=== PATIENT | female | born 1965 | race Caucasian/White ===

== ENCOUNTER → 2017-09-27 | Outpatient (CLI) | payer BC ==
--- NOTE | 2017-09-27 15:01 | CONS ---
CONSULTATION DATE OF SERVICE: 09/27/2017 52-year-old lady has been evaluated in the sleep center for possible obstructive sleep apnea-hypopnea syndrome. She was referred by Larry. 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 On days when she is off from 10 to 12 midnight until 6 or 8:00 am. FALLING ASLEEP: No problem with falling asleep. She does not have TV in bedroom. DURING THE SLEEP: She snores and maybe wakes up once with nocturia. She usually sleeps on the back position. No history of hypnagogical hallucinations, sleep paralysis or cataplexy. DURING THE DAY/SLEEP WAKE EVALUATION: The patient denied any significant daytime sleepiness. [place] Sleepiness Scale is 1. PAST MEDICAL HISTORY: Positive for hypertension, hyperlipidemia, hypothyroidism. Seasonal allergies. PAST SURGICAL HISTORY: Tonsillectomy, , hysterectomy with total hysterectomy in 2007 and right knee surgery for meniscal rupture. MEDICATIONS: Hydrochlorothiazide, losartan, atorvastatin, levothyroxine. SOCIAL HISTORY: Negative for smoking. Alcohol consumption occasionally. FAMILY HISTORY: Hypertension, diabetes, thyroid problems, cancer. REVIEW OF SYSTEMS: Occasional awakenings from sleep, otherwise basically sometimes swelling of the legs. PHYSICAL EXAM: 52-year-old lady without distress. BP 143/78, HR 82, RR 16, height 5 feet 6 inches, weight 244, BMI 39.3. Neck 16 inches in circumference. Temperature 98.1. Oxygen saturation on room air 96%. Oropharynx: Low position of soft palate, wide pillars, small oropharyngeal air space. Slight restriction of nasal breathing. ABDOMEN: Obese. Extremities 1+ bilateral ankle edema. Neck Supple, no JVD. Thyroid is not palpable. LUNGS Clear to percussion and to auscultation. Good air exchange. No wheezing or rhonchi. HEART S1, S2 regular. No murmurs, gallops, or rubs. ABDOMEN : Obese. Soft and nontender. Bowel sounds are present. No organomegaly appreciated. EXTREMITIES No clubbing or cyanosis. 1+ bilateral ankle edema. [facility] Awake, alert, and oriented X3. Cranial nerves 2 to 7 intact. There is no fasciculation or atrophy. noted. No focal deficits observed. IMPRESSION: 1. Snoring, small oropharyngeal air space. Some restriction of nasal breathing, wide neck, obesity, possible obstructive sleep apnea-hypopnea syndrome. 2. Obesity, BMI 39.3. 3. Hypertension. 4. Seasonal allergy. 5. Hyperlipidemia. 6. Hypothyroidism. 7. Status post tonsillectomy. 8. Status post . 9. Status post total hysterectomy. 10.Status post right knee meniscus surgery. 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 PLAN: 1. Polysomnography for evaluation of patient's breathing during sleep. 2. CPAP/BiPAP titration if sleep study confirms obstructive sleep apnea-hypopnea syndrome. 3. Preferable position during sleep on the side. 4. No driving if patient feels any sleepiness. Patient is aware about civil and criminal liability for unsafe driving. 5. I will see patient for follow up visit to explain results of testing and following plan. Thank you very much for referring this patient for consultation. Sincerely, Titi Jerez MD, PhD, FAASM Diplomat of [employer] [employer] Specialties [place] Board of [employer] Medicine Substance Abuse Nurse of [facility] [place] MMODL / HAYLEYN: [id number] /
== END | disposition home or self-care (01) ==
LOC: SLEEP 11:36
PROVIDERS: ATTEND Internal Medicine
DX: R06.83 Snoring (principal); M27.8 Other specified diseases of jaws; E66.9 Obesity, unspecified; I10 Essential (primary) hypertension; J30.2 Other seasonal allergic rhinitis; E78.5 Hyperlipidemia, unspecified; E03.9 Hypothyroidism, unspecified; Z90.89 Acquired absence of other organs; Z98.890 Other specified postprocedural states; Z68.39 Body mass index [BMI] 39.0-39.9, adult; Z90.710 Acquired absence of both cervix and uterus; Z79.899 Other long term (current) drug therapy
CPT/HCPCS: 99211

== ENCOUNTER → 2017-10-25 | Outpatient (CLI) | payer BC ==
--- NOTE | 2017-10-26 10:52 | MM ---
Reason for exam: screening (asymptomatic). Last mammogram was performed 4 years and 8 months ago. History: Patient is postmenopausal. Physical Findings: A clinical breast exam by your physician is recommended on an annual basis and results should be correlated with mammographic findings. MG Screening Mammo w CAD Bilateral CC and MLO view(s) were taken. Technologist: Leela Gomes RT (R)(M) Prior study comparison: March 04, 2013, bilateral digital screening mammo w/CAD. December 31, 2006, bilateral screening mammogram w/CAD. There are scattered fibroglandular densities. No suspicious abnormality. ASSESSMENT: Negative, BI-RAD 1 RECOMMENDATION: Routine screening mammogram of both breasts in 1 year. Manage on a clinical basis. Axillary nodes appear more prominent, clinical evaluation ultrasound could be performed for clinical concern.
== END | disposition home or self-care (01) ==
LOC: RADMAMWWP 07:01
PROVIDERS: ATTEND Family Medicine
DX: Z12.31 Encounter for screening mammogram for malignant neoplasm of breast (principal)
CPT/HCPCS: 77067

== ENCOUNTER → 2018-01-10 | Outpatient (CLI) | payer BC ==
--- NOTE | 2018-01-10 12:07 | SFUN ---
SLEEP CENTER FOLLOW UP NOTE DATE OF SERVICE: 01/10/2018 A 52-year-old lady who has been followed in Sleep Center for treatment of obstructive sleep apnea-hypopnea syndrome. Recently she had home sleep apnea test which showed severe sleep apnea, 31.4 events per hour with oxygen desaturation to 66%. Patient was started on auto PAP and today is her first visit after she received her CPAP unit. Patient is trying to use equipment every night, but has problem with a full-face mask. She believes that she cannot use nasal mask because sometimes she has problems with breathing through her nose secondary to allergy. She does not feel much improvements with the machine according to her. I checked CPAP unit, except for medical regimen between 5 and 12 cm of water, usage is 27/30 nights and 16/30 nights more than 4 hours. Apnea-hypopnea index reading from the machine is 3.1 and the pressure in the machine is 12. Leak is 11 L/minute which is acceptable. [place] Sleepiness Scale today is 3. MEDICATIONS: Hydrochlorothiazide, atorvastatin, losartan, levothyroxine. PHYSICAL EXAM: Patient in no distress. BP 144/71, HR 92, RR 16, weight 244, temp 98.0, oxygen saturation at room air 97%. OROPHARYNX: Low position of soft palate. ABDOMEN: Obese. Neck Supple, no JVD. Thyroid is not palpable. LUNGS Clear to percussion and to auscultation. Good air exchange. No wheezing or rhonchi. HEART S1, S2 regular. No murmurs, gallops, or rubs. EXTREMITIES No clubbing or cyanosis. 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 Cranial nerves 2 to 7 intact. There is no fasciculation or atrophy. noted. No focal deficits observed. IMPRESSION: 1. Severe obstructive sleep apnea-hypopnea syndrome, most on control with auto PAP by reading from the machine. Patient has some problem related to full-face mask. 2. Obesity. 3. Hypertension. 4. Hyperlipidemia. 5. Hypothyroidism. 6. Vitamin D deficiency. PLAN: 1. Patient will continue to use her CPAP equipment every night for the whole night. I will increase the range of the pressure slightly up to maximal level of 15. 2. Patient will try to use nasal strips if she has difficulties to breathe through her nose. 3. Losing weight. 4. Sleep hygiene with regular time in bed for at least 8 hours. 5. No driving if feeling any sleepiness. 6. Followup visit in about 4 to 6 weeks. Thank you very much for allowing me to participate in the management of your patient. Sincerely, Titi Jerez MD, PhD, FAASM Diplomat of [place] [employer] Specialties [employer] Board of Internal Medicine Casing Mixer of [facility] [place] MMODL / HAYLEYN: [id number] /
== END | disposition home or self-care (01) ==
LOC: SLEEP 10:36
PROVIDERS: ATTEND Internal Medicine
DX: G47.33 Obstructive sleep apnea (adult) (pediatric) (principal); E66.9 Obesity, unspecified; I10 Essential (primary) hypertension; E78.5 Hyperlipidemia, unspecified; E03.9 Hypothyroidism, unspecified; E55.9 Vitamin D deficiency, unspecified; Z99.89 Dependence on other enabling machines and devices; Z79.899 Other long term (current) drug therapy

== ENCOUNTER → 2018-11-01 | Outpatient (CLI) | payer BC ==
--- NOTE | 2018-11-05 17:02 | MM ---
Reason for exam: screening (asymptomatic). Last mammogram was performed 1 year ago. History: Patient is postmenopausal. Took hormonal contraceptives for 5 years. MG Screening Mammo w CAD Bilateral CC and MLO view(s) were taken. Prior study comparison: October 25, 2017, bilateral MG screening mammo w CAD. March 04, 2013, bilateral digital screening mammo w/CAD. There are scattered fibroglandular densities. No significant new finding when compared with prior studies. ASSESSMENT: Negative, BI-RAD 1 RECOMMENDATION: Routine screening mammogram of both breasts in 1 year.
== END | disposition home or self-care (01) ==
LOC: RADMAMWWP 06:56
PROVIDERS: ATTEND Family Medicine
DX: Z12.31 Encounter for screening mammogram for malignant neoplasm of breast (principal)
CPT/HCPCS: 77067

== ENCOUNTER → 2019-01-02 | Outpatient (CLI) | payer BC ==
--- NOTE | 2019-01-02 11:27 | SFUN ---
SLEEP CENTER FOLLOW UP NOTE DATE OF SERVICE: 01/02/2019 This is a 53-year-old lady who has been followed in the Sleep Center for treatment of severe obstructive sleep apnea-hypopnea syndrome. Patient was diagnosed with severe obstructive sleep apnea last year, was started on treatment with AutoPAP and at the beginning she was able to use it, but later she developed some problems with using equipment and she is not able to use it every night. I checked her CPAP unit, range of the pressure 5-15 cm of water. For the last month, patient used it 20/30 nights and 15/30 nights more than 4 hours with average usage 4.5 hours. Apnea-hypopnea index reading 9.6. For the last night, the patient used it only for 26 minutes. Apnea-hypopnea index reading from the machine 30.0, pressure is 14.9. Leak is 8 L/minute, which is acceptable. The patient is using a full-face mask. Patient feels that when she is using machine she sleeps worse than without machine. [place] Sleepiness Scale today is 3. MEDICATIONS: Hydrochlorothiazide, atorvastatin, losartan, levothyroxine. PHYSICAL EXAM: Patient in no distress. BP 145/77, HR 84, RR 16, height 5, 6, weight 242, body mass index 39, temperature 98.0, oxygen saturation on room air 97%. OROPHARYNX: Low position of soft palate. Mallampati 3. ABDOMEN: Obese. Neck Supple, no JVD. Thyroid is not palpable. LUNGS Clear to percussion and to auscultation. Good air exchange. No wheezing or rhonchi. HEART S1, S2 regular. No murmurs, gallops, or rubs. EXTREMITIES No clubbing or cyanosis. 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 Cranial nerves 2 to 7 intact. There is no fasciculation or atrophy. noted. No focal deficits observed. IMPRESSION: 1. Severe obstructive sleep apnea-hypopnea syndrome, apnea-hypopnea index 31.4. Patient is on treatment with AutoPAP, but has difficulties with the usage of equipment. According to patient feels worse with the machine then without machine. 2. Obesity. 3. Hypertension. 4. Hyperlipidemia. 5. Hypothyroidism. 6. History of vitamin D deficiency. PLAN: 1. CPAP titration for evaluation of effective CPAP pressure for correction of severe obstructive sleep apnea-hypopnea syndrome. 2. Losing weight. 3. Sleep hygiene with regular time in bed for at least 7-1/2 hours. 4. No driving if feeling sleepiness. Thank you very much for allowing me to participate in the management of your patient. Sincerely, Titi Jerez MD, PhD, FAASM Diplomat of [place] [employer] Specialties [place] Board of Internal Medicine Senior Solutions Consultant of [facility] [place] MMODL / HAYLEYN: [id number] /
== END | disposition home or self-care (01) ==
LOC: SLEEP 10:41
PROVIDERS: ATTEND Internal Medicine
DX: G47.33 Obstructive sleep apnea (adult) (pediatric) (principal); E66.9 Obesity, unspecified; I10 Essential (primary) hypertension; E78.5 Hyperlipidemia, unspecified; E03.9 Hypothyroidism, unspecified; Z68.39 Body mass index [BMI] 39.0-39.9, adult; Z79.899 Other long term (current) drug therapy; Z86.39 Personal history of other endocrine, nutritional and metabolic disease

== ENCOUNTER → 2020-01-28 | Outpatient (CLI) | payer BC ==
--- NOTE | 2020-02-02 11:42 | MM ---
Reason for exam: screening (asymptomatic). Last mammogram was performed 1 year and 3 months ago. History: Patient is postmenopausal. Took hormonal contraceptives for 5 years. Physical Findings: A clinical breast exam by your physician is recommended on an annual basis and results should be correlated with mammographic findings. MG Screening Mammo w CAD Bilateral CC and MLO view(s) were taken. Prior study comparison: November 01, 2018, bilateral MG screening mammo w CAD. October 25, 2017, bilateral MG screening mammo w CAD. There are scattered fibroglandular densities. No significant changes when compared with prior studies. ASSESSMENT: Negative, BI-RAD 1 RECOMMENDATION: Routine screening mammogram of both breasts in 1 year.
== END | disposition home or self-care (01) ==
LOC: RADMAMWWP 09:12
PROVIDERS: ATTEND Family Medicine
DX: Z12.31 Encounter for screening mammogram for malignant neoplasm of breast (principal)
CPT/HCPCS: 77067

== ENCOUNTER → 2020-09-01 | Outpatient (CLI) | payer BC ==
--- NOTE | 2020-09-01 11:33 | SFUN ---
SLEEP CENTER FOLLOW UP NOTE DATE OF SERVICE: 09/01/2020 This is a 55-year-old lady has been followed in Sleep Center for treatment of obstructive sleep apnea-hypopnea syndrome. During her previous visit, apnea-hypopnea reading from the machine was increased to 7.8, and I changed the regimen of the pressure in the machine, increasing the maximal CPAP pressure to 16. Patient continued to use her CPAP equipment but has problems with humidity because there is a condensation of water in the tube and position of the tube is not correct and there is a goes down on the tube. The patient knows how to adjust humidity and according to her humidity at the level of 4. I checked the CPAP unit. Usage is nights. Average usage is 4.6 hours per night. Range of the pressure of 5-16 with average pressure of 15.9, close to maximal. Leak is 19 L/minute. Apnea-hypopnea index is 5.6, which is less than during the previous visit before I increased the pressure. [place] Sleepiness Scale is 3. MEDICATIONS: Hydrochlorothiazide 25 mg once a day, atorvastatin 10 mg once a day, losartan 100 mg once a day, levothyroxine 100 mcg once a day. PHYSICAL EXAMINATION: GENERAL: Patient in no distress. VITAL SIGNS: BP 147/82, HR 82, RR 15, height 5 feet 7 inches, weight 238.2, temperature 97.6, oxygen saturation on room air 98%. HEENT: PERRLA, EOMI. Oropharynx low position of soft palate, Mallampati 3. NECK: Supple, no JVD. Thyroid is not palpable. LUNGS: Clear to percussion and to auscultation. Good air exchange. No wheezing or rhonchi. HEART: S1, S2 regular. No murmurs, gallops, or rubs. ABDOMEN: Soft and nontender. Bowel sounds are present. No organomegaly appreciated. EXTREMITIES: No clubbing or cyanosis. 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 Cranial nerves 2 to 7 intact. There is no fasciculation or atrophy. noted. No focal deficits observed. IMPRESSION: 1. Severe obstructive sleep apnea-hypopnea syndrome, original apnea-hypopnea index 31.4. The patient continues to use CPAP unit but had some problems with the humidifier with condensation of water in the tube. Apnea-hypopnea index slightly increased to 5.6. 2. Obesity. 3. Hypertension. 4. Hyperlipidemia. 5. Hypothyroidism. 6. History of vitamin D deficiency. PLAN: 1. I extensively discussed with the patient options for the humidity adjustments and I increased humidity to the level of 6. 2. Patient should change position of the machine, so the hose will not configuration and to prevent condensation of water. 3. We will increase temperature in the tube to prevent condensation. 4. I changed pressure in the machine to the maximal level of 17. 5. Patient will continue to use PAP equipment every night for the whole night. 6. Sleep hygiene with regular time in bed for at least 7-1/2 to 8 hours. 7. Precautions related to driving. No driving if feeling sleepiness. 8. I will maintain all necessary prescription for PAP supplies including mask, tube, filters. 9. Watching weight. 10.Follow-up visit in 6 months or earlier if patient has any problems. Thank you very much for allowing me to participate in management of your patient. Sincerely, Titi Jerez MD, PhD, FAASM Diplomat of [place] [employer] Specialties [place] Board of Internal Medicine Interactive Media Marketing Director of [facility] [place] MMODL / IJN: [id number] /
== END ==
LOC: SLEEP 10:14
PROVIDERS: ATTEND Internal Medicine
DX: G47.33 Obstructive sleep apnea (adult) (pediatric) (principal); E66.9 Obesity, unspecified; I10 Essential (primary) hypertension; E78.5 Hyperlipidemia, unspecified; E03.9 Hypothyroidism, unspecified; E55.9 Vitamin D deficiency, unspecified; Z99.81 Dependence on supplemental oxygen; Z87.891 Personal history of nicotine dependence

== ENCOUNTER → 2021-04-07 | Outpatient (CLI) | payer BC ==
--- NOTE | 2021-04-07 21:41 | SFUN ---
SLEEP CENTER FOLLOW UP NOTE DATE OF SERVICE: 04/07/2021 This 55-year-old lady has been followed in Sleep Center for treatment of obstructive sleep apnea-hypopnea syndrome. Patient continues to use her CPAP equipment. She sleeps well. [place] Sleepiness Scale today is only 1, which is totally normal. I checked her CPAP unit. During her previous surgery visit I increased the pressure on her automatic machine to the range of 5 to 17, and that is the range now. Average pressure is 16.7, so it is close to maximum. Usage is 22/30 nights. Average 4.5 hours per night. Leak is 11 L/minute, which is normal range. Apnea-hypopnea index increased to 6.9. No central apneas. MEDICATIONS: 1. Hydrochlorothiazide 25 mg once a day. 2. Levothyroxine 100 mcg once a day. 3. Atorvastatin 10 mg once a day. 4. Losartan 100 mg once a day. PHYSICAL EXAMINATION: GENERAL: Pleasant patient in no distress. VITAL SIGNS: BP 134/74, HR 87, RR 14, height 5 feet 6 inches, weight 230.6, body mass index 37.1, temperature 97.8, oxygen saturation at room air 97%. HEENT: PERRLA, EOMI, evaluation of oropharynx showed tongue protrudes midline. Low position of soft palate; Mallampati III. NECK: Supple, no JVD. Thyroid is not palpable. LUNGS: Clear to percussion and to auscultation. Good air exchange. No wheezing or rhonchi. HEART: S1, S2 regular. No murmurs, gallops, or rubs. ABDOMEN: Soft and nontender. Bowel sounds are present. No organomegaly appreciated. EXTREMITIES: No clubbing or cyanosis. 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 Cranial nerves 2 to 7 intact. There is no fasciculation or atrophy. noted. No focal deficits observed. IMPRESSION: 1. Severe obstructive sleep apnea-hypopnea syndrome. Patient demonstrated borderline compliance with treatment, benefitting from treatment. Apnea-hypopnea index slightly increased to 6.9. No central events. 2. Obesity. 3. Hypertension. 4. Hyperlipidemia. 5. Hypothyroidism. 6. History of vitamin D deficiency. PLAN: 1. I adjusted pressure in the machine to the level of 5 to 18 cm of water. 2. Patient will continue to use PAP equipment every night for the whole night. 3. Sleep hygiene with regular time in bed for at least 7-1/2 to 8 hours. 4. Precautions related to driving. No driving if feeling sleepiness. 5. I will maintain all necessary prescription for PAP supplies including mask, tube, filters. 6. Watching weight. 7. Follow-up visit in 6 months or earlier if patient has any problems. Thank you very much for allowing me to participate in the management of your patient. Sincerely, Titi Jerez MD, PhD, FAASM Diplomat of [place] [employer] Specialties Sleep Medicine Board of [place] Board of Internal Medicine Senior Publications Specialist of [facility] [place] MMODL / IJN: [id number] /
== END ==
LOC: SLEEP 16:24
PROVIDERS: ATTEND Internal Medicine
DX: G47.33 Obstructive sleep apnea (adult) (pediatric) (principal); E66.9 Obesity, unspecified; I10 Essential (primary) hypertension; E78.5 Hyperlipidemia, unspecified; E03.9 Hypothyroidism, unspecified; Z86.39 Personal history of other endocrine, nutritional and metabolic disease; Z79.890 Hormone replacement therapy; Z79.899 Other long term (current) drug therapy; Z68.37 Body mass index [BMI] 37.0-37.9, adult; Z87.891 Personal history of nicotine dependence

== ENCOUNTER → 2021-04-08 | Outpatient (CLI) | payer BC ==
--- NOTE | 2021-04-11 10:16 | MM ---
Reason for exam: screening (asymptomatic). Last mammogram was performed 1 year and 2 months ago. History: Patient is postmenopausal. Took hormonal contraceptives for 5 years. Physical Findings: A clinical breast exam by your physician is recommended on an annual basis and results should be correlated with mammographic findings. MG Screening Mammo w CAD Bilateral CC and MLO view(s) were taken. Prior study comparison: January 28, 2020, bilateral MG screening mammo w CAD. November 01, 2018, bilateral MG screening mammo w CAD. There are scattered fibroglandular densities. Focal asymmetry 7mm anterior central aspect 2cm from nipple. This finding is changed when compared with previous exams. ASSESSMENT: Incomplete: need additional imaging evaluation, BI-RAD 0 RECOMMENDATION: Special view mammogram of the right breast. If lesion persists on supplemental views, image directed ultrasound is recommended. [facility] will attempt to contact patient to return for supplemental views and ultrasound if indicated.
== END | disposition home or self-care (01) ==
LOC: RADMAMWWP 07:15
PROVIDERS: ATTEND Family Medicine
DX: Z12.31 Encounter for screening mammogram for malignant neoplasm of breast (principal); Z78.0 Asymptomatic menopausal state
CPT/HCPCS: 77067

== ENCOUNTER → 2021-04-20 | Outpatient (CLI) | payer BC ==
--- NOTE | 2021-04-21 13:15 | MM ---
Reason for exam: additional evaluation requested from abnormal screening. Last mammogram was performed less than 1 month ago. History: Patient is postmenopausal. Took hormonal contraceptives for 5 years. Physical Findings: Nurse did not find any significant physical abnormalities on exam. MG Work Up Mamm w CAD RT Spot compression CC, spot compression MLO, and LM view(s) were taken of the right breast. Prior study comparison: April 08, 2021, bilateral MG screening mammo w CAD. January 28, 2020, bilateral MG screening mammo w CAD. Finding: There is a 9-11 mm obscured round mass located 2-3 cm from the nipple in the anterior position of the right breast, persists on additional views. These results were verbally communicated with the patient and result sheet given to the patient on 04/20/21. ASSESSMENT: Incomplete: need additional imaging evaluation, BI-RAD 0 RECOMMENDATION: Ultrasound of the right breast.
--- NOTE | 2021-04-21 13:18 | USB ---
Reason for exam: additional evaluation requested from abnormal screening. History: Patient is postmenopausal. Took hormonal contraceptives for 5 years. US Breast Workup Limited RT Right limited breast ultrasound including focal area of concern, retroareolar and axilla demonstrates a 8 x 6 x 8mm microlobulated, irregular, solid, hypoechoic lesion at 12 o'clock. These results were verbally communicated with the patient and result sheet given to the patient on 04/20/21. ASSESSMENT: Suspicious, BI-RAD 4 RECOMMENDATION: Ultrasound core biopsy of the right breast. Called Dr. Sandoval's office with mammographic findings and has scheduled an appointment for the patient for 05/19/21 at 10:[address] Richardson. Biopsy scheduled for 05/19/21 at 1:00. PRELIMINARY REPORT CALLED AND FAXED TO DR. RICHARDSON ON 04/21/21.
== END | disposition home or self-care (01) ==
LOC: RADMAMWWP 10:14
PROVIDERS: ATTEND Family Medicine
DX: R92.8 Other abnormal and inconclusive findings on diagnostic imaging of breast (principal); Z78.0 Asymptomatic menopausal state
CPT/HCPCS: 77065

== ENCOUNTER → 2021-05-19 | Day surgery (SDC) | payer BC ==
[2021-05-19 12:17] VITALS: RESP 16
[2021-05-19 13:31] VITALS: BP 134/83; PULSE 78; TEMP 97.7
--- NOTE | 2021-05-19 16:33 | USB ---
EXAMINATION TYPE: US biopsy breast VAD RT, MG post biopsy diagnostic mammo RT wo CAD DATE OF EXAM: 05/19/2021 CLINICAL HISTORY: 56-year-old female R92.8 ABNORMAL MAMMOGRAM. TECHNIQUE: Ultrasound guided core biopsy of right breast. COMPARISON: 04/08/2021 and 04/20/2021 FINDINGS: The procedure of ultrasound guided core biopsy was explained to the patient. Benefits, alternatives, and risks were discussed. An informed consent was then obtained. The very suspicious 8 mm solid hypoechoic nodule at the 12:00 subareolar region right breast was identified and targeted for biopsy. The patient was placed in supine positioning for imaging and for the procedure. The overlying skin was prepped and draped in usual sterile fashion. Lidocaine was used as anesthetic into the skin and subcutaneous tissue up to area of concern in the 12:00 zone A right breast. Under ultrasound guidance, a 13-gauge vacuum-assisted mammotome biopsy gun was used to obtain 3 core samples. Following this, a wing clip was left in lesion. The patient tolerated the procedure well without any immediate complication. The patient was kept in the radiology department for short stay after the procedure and then discharged home in stable condition. Postprocedure mammogram shows wing clip at the mammographic mass. IMPRESSION: Successful, uncomplicated ultrasound guided core biopsy of the 8 mm BI-RADS 5, 12:00 subareolar right breast mass. Full pathology results to follow. If benign results, repeat biopsy or excision should be considered. Pathology Results: Malignant RIGHT BREAST, TWELVE O'CLOCK, ULTRASOUND GUIDED CORE BIOPSY: Invasive moderately differentiated ductal carcinoma (Grade 2). See Surgical Pathology Cancer Case Summary and Comment. Recommendation Surgical consult of the right breast. EVIE
== END | disposition home or self-care (01) ==
LOC: RADUSWWP 10:02
PROVIDERS: ATTEND Surgery
DX: C50.811 Malignant neoplasm of overlapping sites of right female breast (principal)
CPT/HCPCS: 77065; 19083; A4648; J2001; 88305; 88341; 88342

== ENCOUNTER → 2021-05-19 | Outpatient (CLI) | payer BC ==
[2021-05-19 10:20] VITALS: BP 137/85; RESP 18; TEMP 98.3
--- NOTE | 2021-05-19 10:44 | P.GSHP ---
History of Present Illness H&P Date: 05/19/21 Chief Complaint: Abnormal right breast mammogram Emelyn is a 56-year-old female who is seen in consultation for Dr. Sandoval. She underwent a bilateral mammogram on 1322. This revealed an area of concern in the right breast. [place] [address]. This revealed a solid irregular 8X8 cm lesion in the right breast for which ultrasound-guided core biopsy was recommended. The patient does not feel any lesions of concern in her breast. This was identified on a routine mammogram. She is not complaining of any new lumps masses or nodules in either breast. The second complaining of any nipple discharge or skin changes. She does not complain of any recent trauma or infection in the breast. She has not had any surgery on her breast. Caffiene: occasional nicotine: 4 cigarettes/day for 30 years chocolate: several times/week Family History: maternal grandmother: ovarian cancer mother: kidney cancer Hormonal History; Menarche: 10 M1, breast fed: no, age at first : 25 menopause: hysterectomy at 41 they took her ovaries, done for a cyst; done secondary to family history hormones: none BCP: 2 years Surgical History: tonsil tubal Bilateral knee torn meniscus Total abdominal hysterectomy Medical History: HTN high cholesterol hypothyroid Social History: nicotine: 4/day alcohol: occasional drugs: none - Constitutional Constitutional: Denies chills, Denies fever - EENT Eyes: denies blurred vision, denies pain Ears: deny: decreased hearing, tinnitus Ears, nose, mouth and throat: Denies headache, Denies sore throat - Breasts Breasts: bilateral: as per HPI - Cardiovascular Cardiovascular: Denies chest pain, Denies shortness of breath - Respiratory Respiratory: Denies cough, Denies 7 - Gastrointestinal Gastrointestinal: Denies abdominal pain, Denies diarrhea, Denies nausea, Denies vomiting - Genitourinary (Female) Genitourinary: Denies dysuria, Denies hematuria - Menstruation Menstruation: Reports as per HPI - Musculoskeletal Musculoskeletal: Denies myalgias - Integumentary Integumentary: Denies pruritus, Denies rash - Neurological Neurological: Denies numbness, Denies weakness - Psychiatric Psychiatric: Denies anxiety, Denies depression - Endocrine Comment: hypothyroid Endocrine: Reports as per HPI - Hematologic/Lymphatic Comment: none - Allergic/Immunologic Allergic/Immunologic: Reports seasonal allergies Past Medical History Past Medical History: Hypertension History of Any Multi-Drug Resistant Organisms: None Reported Past Surgical History: Section, Hysterectomy, Tonsillectomy, Tubal Ligation Additional Past Surgical History / Comment(s): torn meniscus repair Past Anesthesia/Blood Transfusion Reactions: No Reported Reaction Past Psychological History: No Psychological Hx Reported Smoking Status: Current every day smoker Past Alcohol Use History: Occasional Past Drug Use History: None Reported Medications and Allergies Home Medications Medication Instructions Recorded Confirmed Type Cholecalciferol [Vitamin D3] 1,000 unit PO DAILY@1200 10/05/15 05/19/21 History Levothyroxine Sodium [Synthroid] 100 mcg PO QAM 10/05/15 05/19/21 History Losartan Potassium [Cozaar] 100 mg PO DAILY@1200 10/05/15 05/19/21 History hydroCHLOROthiazide [Hydrodiuril] 25 mg PO DAILY@1200 10/05/15 05/19/21 History Ascorbic Acid [Vitamin C] 500 mg PO DAILY 05/11/21 05/19/21 History Atorvastatin Calcium [Lipitor] 10 mg PO DAILY@1200 05/19/21 05/19/21 History Allergies Allergy/AdvReac Type Severity Reaction Status Date / Time No Known Allergies Allergy Verified 05/19/21 10:10 Surgical - Exam Vital Signs Temp Resp BP Pulse Ox 98.3 F 18 137/85 98 05/19/21 10:13 05/19/21 10:13 05/19/21 10:13 05/19/21 10:13 BMI 36 - General no distress - Eyes normal ocular movement - Neck trachea midline - Respiratory normal respiratory effort, clear to auscultation - Cardiovascular Rhythm: regular Heart Sounds: normal: S1, S2 - Abdomen Abdomen: soft, non tender, no guarding, no rigid, no rebound - Integumentary normal turgor - Neurologic no disoriented, no combative - Musculoskeletal normal gait, normal posture - Psychiatric oriented to time, oriented to person, oriented to place, speech is normal, memory intact Breast Exam: BRA: 42B inspection: Bilateral grade 2/3 ptosis Palpation: Right breast: Multiple positional exam fibrocystic breast changes no dominant masses or nodules of concern, particularly attention to the area of the lesion seen on ultrasound did not reveal any palpable lesion Right axilla: No adenopathy of concern Left breast: Multi-positional exam fibrocystic changes no dominant masses or nodules of concern Left axilla: No adenopathy of concern Results Mammogram and ultrasound personally reviewed/lesion approximately 8 cm in the right breast near 12:00 Assessment and Plan Assessment: Impression: HTN high cholesterol hypothyroid Fibrocystic breast changes/no discrete dominant masses on palpable on examination Abnormal right breast mammogram and ultrasound Family history of cancer Plan: Ultrasound core biopsy right breast lesion Risks and benefits of procedure discussed with the patient and her . They include but are not limited to bleeding, infection, reaction to the anesthetic. If the biopsy were to be discordant it is possible further biopsy would be recommended. The patient and her understand and they wish to proceed. Cc: Dr. Sandoval
== END ==
LOC: WWCWWP 10:01
PROVIDERS: ATTEND Surgery
DX: N60.11 Diffuse cystic mastopathy of right breast (principal); N60.12 Diffuse cystic mastopathy of left breast; I10 Essential (primary) hypertension; R92.8 Other abnormal and inconclusive findings on diagnostic imaging of breast; E78.00 Pure hypercholesterolemia, unspecified; E03.9 Hypothyroidism, unspecified; Z80.3 Family history of malignant neoplasm of breast; F17.210 Nicotine dependence, cigarettes, uncomplicated; Z79.890 Hormone replacement therapy

== ENCOUNTER → 2021-05-26 | Outpatient (CLI) | payer BC ==
[2021-05-26 09:23] VITALS: BP 134/84; PULSE 86; RESP 17; TEMP 98.6
--- NOTE | 2021-05-26 09:40 | P.PN ---
Subjective Progress Note Date: 05/26/21 Principal diagnosis: invasive ductal carcinoma right breast Emelyn is a 56 year old female status post right breast ultrasound-guided core biopsy and . Pathology revealed invasive ductal carcinoma. This is 8 mm in size. It is ER NC positive and HER-2 equivocal. It is grade 2. Patient tolerated the biopsy without difficulty. Objective - Vital Signs Vital signs: Vital Signs Temp 98.6 F 05/26/21 09:18 Pulse 86 05/26/21 09:18 Resp 17 05/26/21 09:18 BP 134/84 05/26/21 09:18 Pulse Ox Intake & Output 05/25/21 05/26/21 05/26/21 18:59 06:59 18:59 Weight 104.326 kg - Exam BMI 36 - Constitutional General appearance: Present: cooperative - EENT Eyes: Present: EOMI ENT: Present: hearing grossly normal - Neck Neck: Present: normal ROM - Respiratory Respiratory: bilateral: CTA - Cardiovascular Heart sounds: normal: S1, S2 - Integumentary Integumentary Comment(s): Mild ecchymosis biopsy site right breast, no evidence of infection or hematoma Integumentary: Present: normal turgor - Musculoskeletal Musculoskeletal: Present: gait normal - Psychiatric Psychiatric: Present: A&O x's 3 Assessment and Plan Assessment: pathology results reviewed Impression: 1. invasive ductal carcinoma right breast Plan: 1 present at tumor board 2. await her2 results 3. follow up 2 weeks CC: Dr. Sandoval
--- NOTE | 2021-05-26 10:19 | P.PN ---
Progress Note - Text Progress Note Date: 05/26/21 I have discussed with Emelyn results of her ultrasound core biopsy. This is a invasive ductal carcinoma grade 2 ER/[place] positive HER-2/braxton equivocal. This is a stage IA lesion. I've discussed that her case will be presented at tumor Board. We have spent time talking about surgical, medical, and radiation oncology treatment options. At this time the patient will most likely undergo a lumpectomy and sentinel node biopsy. After discussed onco-plastic resection utilizing the mastopexy incision, this would most likely be a donut mastopexy. At this time she is going to consider this. We're awaiting results of the HER-2 status. We discussed genetic testing and at this time she is not going to have it done Her case is going to be presented at tumor board Tentative date is 07/26/2021. Surgical procedure: Needle localization right breast lumpectomy, possible hyperplastic tissue transf er, possible mastopexy, sentinel node biopsy, possible axillary node dissection, right sentinel node injection CC: Dr. Sandoval
== END ==
LOC: WWCWWP 09:10
PROVIDERS: ATTEND Surgery
DX: C50.911 Malignant neoplasm of unspecified site of right female breast (principal); Z17.0 Estrogen receptor positive status [ER+]

== ENCOUNTER → 2021-06-30 | Outpatient (CLI) | payer BC ==
[2021-06-30 10:09] VITALS: BP 153/84; PULSE 79; RESP 17; TEMP 97.9
--- NOTE | 2021-06-30 11:05 | P.PN ---
Subjective Progress Note Date: 06/30/21 Principal diagnosis: Stage IA invasive ductal carcinoma right breast Emelyn is a 56-year-old female who is seen in consultation for Dr. Sandoval. She underwent a bilateral mammogram on 132. This revealed an area of concern in the right breast. Additional diagnostic [place] [address]. This revealed a solid irregular 8X8 cm lesion in the right breast for which ultrasound-guided core biopsy was recommended. The patient does not feel any lesions of concern in her breast. This was identified on a routine mammogram. She is not complaining of any new lumps masses or nodules in either breast. She is not complaining of any nipple discharge or skin changes. She does not complain of any recent trauma or infection in the breast. She has not had any surgery on her breast. She underwent an ultrasound core biopsy on . Pathology revealed an invasive moderately differentiated ductal carcinoma grade 2. This is ER/[place] positive and HER-2/braxton negative. Her case was presented at tumor board on 312. Recommendation is to proceed with surgical intervention followed by radiation and hormonal therapy. The patient has declined genetic testing. Caffiene: occasional nicotine: 4 cigarettes/day for 30 years chocolate: several times/week Family History: maternal grandmother: ovarian cancer mother: kidney cancer Hormonal History; Menarche: 10 M1, breast fed: no, age at first : 25 menopause: hysterectomy at 41 they took her ovaries, done for a cyst; done secondary to family history hormones: none BCP: 2 years Surgical History: tonsil tubal Bilateral knee torn meniscus Total abdominal hysterectomy Medical History: HTN high cholesterol hypothyroid Social History: nicotine: 4/day alcohol: occasional drugs: none - Constitutional Constitutional: Denies chills, Denies fever - EENT Eyes: denies blurred vision, denies pain Ears: deny: decreased hearing, tinnitus Ears, nose, mouth and throat: Denies headache, Denies sore throat - Breasts Breasts: bilateral: as per HPI - Cardiovascular Cardiovascular: Denies chest pain, Denies shortness of breath - Respiratory Respiratory: Denies cough - Gastrointestinal Gastrointestinal: Denies abdominal pain, Denies diarrhea, Denies nausea, Denies vomiting - Genitourinary (Female) Genitourinary: Denies dysuria, Denies hematuria - Menstruation Menstruation: Reports as per HPI - Musculoskeletal Musculoskeletal: Denies myalgias - Integumentary Integumentary: Denies pruritus, Denies rash - Neurological Neurological: Denies numbness, Denies weakness - Psychiatric Psychiatric: Denies anxiety, Denies depression - Endocrine Comment: hypothyroid Endocrine: Reports as per HPI - Hematologic/Lymphatic Comment: none - Allergic/Immunologic Allergic/Immunologic: Reports seasonal allergies Objective - Vital Signs Vital signs: Vital Signs Temp 97.9 F 06/30/21 10:05 Pulse 79 06/30/21 10:05 Resp 17 06/30/21 10:05 BP 153/84 06/30/21 10:05 Pulse Ox 96 06/30/21 10:05 Intake & Output 06/29/21 06/30/21 06/30/21 18:59 06:59 18:59 Weight 103.873 kg - Exam BMI 35.9 - Constitutional General appearance: Present: cooperative - EENT Eyes: Present: EOMI ENT: Present: hearing grossly normal - Neck Neck: Present: normal ROM - Respiratory Respiratory: bilateral: CTA - Cardiovascular Rhythm: regular Heart sounds: normal: S1, S2 - Gastrointestinal General gastrointestinal: Present: soft - Integumentary Integumentary: Present: normal turgor - Musculoskeletal Musculoskeletal: Present: gait normal - Psychiatric Psychiatric: Present: A&O x's 3, appropriate affect, intact judgment & insight - Additional findings Additional findings: Breast examination: [place]: 40 2B: Inspection: Bilateral grade 2/3 ptosis Palpation: Right breast: Multiple positional exam fibrocystic changes no dominant masses or nodules of concern Right axilla: No adenopathy of concern Left breast: Multiple positional exam fibrocystic changes no dominant masses or nodules of concern Left axilla: No adenopathy of concern Assessment and Plan Assessment: Impression: Stage IA invasive ductal carcinoma right breast Plan: right breast needle localization and lumpectomy, right sentinel node injection, right sentinel node biopsy possible axillary node dissection, mastopexy incision, possible onco-plastic tissue transfer Cc: Dr. Sandoval
== END ==
LOC: WWCWWP 09:53
PROVIDERS: ATTEND Surgery
DX: C50.211 Malignant neoplasm of upper-inner quadrant of right female breast (principal); Z17.0 Estrogen receptor positive status [ER+]; F17.210 Nicotine dependence, cigarettes, uncomplicated; I10 Essential (primary) hypertension; E78.00 Pure hypercholesterolemia, unspecified; E03.9 Hypothyroidism, unspecified

== ENCOUNTER 2021-07-05 10:43 | Day surgery (SDC) | payer BC ==
[2021-06-30 11:28] VITALS: BMI 35.9
[~2021-07-05 10:43] MED LIST: DEXAMETHASONE SOD PHOSPHATE 4 MG/ML 1 ML VIAL IV ONE; HEPARIN SODIUM,PORCINE/PF 5,000 UNIT/0.5 ML SYRINGE SQ PRN; HYDROmorphone 0.5 MG/0.5 ML SYRINGE IVP PRN; LACTATED RINGERS 1,000 ML IV SCH; ONDANSETRON 4 MG/2 ML VIAL IVP ONE; Pre Op ABX Message 1 EACH MISC MISCELLANE ONE
[2021-07-05] MEDS ORDERED: ALPRAZolam 0.5 MG TAB ONE (11:06)
[2021-07-05] MEDS ORDERED: LIDOCAINE 1% INJ 10MG/ML (20 ML MDV) SQ ONE ×3 (11:46→14:52)
[2021-07-05] MEDS ORDERED: KETOROLAC 15 MG/ML 1 ML VIAL ONE (12:26)
[2021-07-05] MEDS ORDERED: PROPOFOL 10 MG/ML 20 ML VIAL IV ONE (12:26)
[2021-07-05] MEDS ORDERED: MIDAZOLAM 2 MG/2 ML VIAL ONE (12:26)
[2021-07-05] MEDS ORDERED: LIDOCAINE 1% INJ 10MG/ML (20 ML MDV) ONE (12:26)
[2021-07-05] MEDS ORDERED: fentaNYL (PF) 50 MCG/ML 2 ML AMP ONE (12:26)
--- NOTE | 2021-07-05 12:56 | NM ---
EXAMINATION TYPE: NM sentinel node injection DATE OF EXAM: 07/05/2021 COMPARISON: NONE INDICATION: Abnormal mammogram. Informed consent was obtained. A timeout was performed. The area around the right nipple was cleansed with alcohol. In a single dose, a total of 08/09/2018 u Ci Technetium 99m Tilmanocept was injected. The patient tolerated the procedure very well. IMPRESSIONS: 1. Successful injection for sentinel node evaluation.
--- NOTE | 2021-07-05 13:06 | P.NAPBC ---
NAPBC Queries - NAPBC Queries Was patient's case review presented at [facility] tumor board? If no, comment.: Yes Was patient's pathology reviewed at [facility]? If no, comment.: Yes Was breast conservation surgery offered? If no, comment.: Yes Was sentinel node biopsy offered? If no, comment.: Yes Was diagnosis confirmed by percutaneous core biopsy? If no, comment.: Yes Is patient mastectomy patient?: No Was a preop referral to reconstructive surgeon offered?: No Clinical Stage: stage IA
--- NOTE | 2021-07-05 15:01 | P.OP ---
Date of Procedure: 07/05/21 Preoperative Diagnosis: Right breast stage IA invasive carcinoma Postoperative Diagnosis: Same Procedure(s) Performed: Right sentinel node biopsy, right mastopexy, right localization lumpectomy, right onco- plastic tissue transfer 55 cm Anesthesia: BRENNENA Surgeon: Constanza Sanderson Estimated Blood Loss (ml): 15 IV fluids (ml): 500 Pathology: other ([place] lymph node, right breast tissue) Condition: stable Disposition: same day Indications for Procedure: Right breast invasive carcinoma Operative Findings: Fibrofatty breast tissue Description of Procedure: Emelyn is a 56-year-old white female diagnosed with a right breast invasive carcinoma. She was seen first in the radiology department where needle localization of the area of concern was performed as well as radioactive injection of tracer in the periareolar region. She was then brought to the operating room. The neoprobe was utilized to identify an area of increased radioactivity in the axilla. The right breast was marked for mastopexy. Marked. Margins were placed. The crescent mastopexy with the apex approximately 1 cm above the areolar. The right breast and axilla were prepped and draped in a sterile fashion. The area of the axilla was approached initially. Using the Robe counter to identify the area of greatest radioactivity an incision was made. Dissection was performed deep into the axillary tissue. The deep axillary node was identified which was radioactive. This was excised. The 10 second count was 479. The background count was 23. No other adenopathy of concern was identified. The deep tissues were closed using 3-0 Vicryl suture. The skin was closed using a 4-0 Monocryl. Steri-Strips applied. The area of the breast was approached. Using the area of the previously marked mastopexy site the skin was de- epithelialized. The parenchyma was entered. The shaft of the needle was identified and surrounding tissue was excised. The defect was 5 x 3 cm. Following this the specimen was painted and sent for review old graft. The clip was noted to be in the specimen, and the tumor appeared to be completely excised. Radiograph was personally reviewed. Additional margins were obtained superior, medial, anterior, posterior, inferior and lateral. Posteriorly dissection was performed onto the pectoralis muscle. After we were assured hemostasis was obtained titanium clips were placed to henna the cavity. To close the defect a superior pillar 7.5 x 4 cm was developed. Inferior pillar 5 x 2 cm was developed. Total tissue mobilized was 55 cm. Titanium clips were placed. The deep tissues were closed using 3-0 Vicryl suture. The mastopexy incision was closed using 3-0 Vicryl suture followed by 4-0 Monocryl in the emesis 4-0 nylon skin suture.
--- NOTE | 2021-07-05 15:03 | P.DS ---
Providers Attending physician: Constanza Sanderson Primary care physician: Napoleon Sandoval MD Plan - Discharge Summary Discharge Rx Participant: Yes New Discharge Prescriptions: No Action Levothyroxine Sodium [Synthroid] 100 mcg PO QAM hydroCHLOROthiazide [Hydrodiuril] 25 mg PO DAILY@1200 Cholecalciferol [Vitamin D3] 1,000 unit PO DAILY@1200 Losartan Potassium [Cozaar] 100 mg PO DAILY@1200 Ascorbic Acid [Vitamin C] 500 mg PO DAILY Cranberry Fruit Extract [Cranberry] 500 mg PO DAILY Atorvastatin Calcium [Lipitor] 10 mg PO DAILY@1200 Discharge Medication List Cholecalciferol [Vitamin D3] 1,000 unit PO DAILY@1200 10/05/15 [History] Levothyroxine Sodium [Synthroid] 100 mcg PO QAM 10/05/15 [History] Losartan Potassium [Cozaar] 100 mg PO DAILY@1200 10/05/15 [History] hydroCHLOROthiazide [Hydrodiuril] 25 mg PO DAILY@1200 10/05/15 [History] Ascorbic Acid [Vitamin C] 500 mg PO DAILY 05/11/21 [History] Atorvastatin Calcium [Lipitor] 10 mg PO DAILY@1200 05/19/21 [History] Cranberry Fruit Extract [Cranberry] 500 mg PO DAILY 06/30/21 [History] Follow up Appointment(s)/Referral(s): Constanza Sanderson MD [STAFF PHYSICIAN] - 07/14/21 9:20 am Patient Instructions/Handouts: *Surgery [facility] - (Anesthesia) Discharge Instructions Outpatient Surgery Activity/Diet/Wound Care/Special Instructions: Do not drive for 24 hours after discharge if taking narcotic pain medication May shower after 48 hours Wear bra at all times unless in the shower Discharge Disposition: HOME SELF-CARE
[2021-07-05 15:13] VITALS: TEMP 97
--- NOTE | 2021-07-05 15:48 | USB ---
EXAMINATION TYPE: US breast localization RT DATE OF EXAM: 07/05/2021 COMPARISON: Ultrasound 05/19/2021 CLINICAL HISTORY: Abnormal biopsy results, malignancy right breast TECHNIQUE: Ultrasound-guided Needle localization with wire placement and surgical excision of area of concern in the right breast. Presurgical planning was performed in conjunction surgeon. FINDINGS: The procedure of needle localization with wire placement for surgical excision was explained to the patient. Risk, benefits, and alternatives were discussed. An informed consent was then obtained. A timeout was performed. The overlying skin was prepped and draped in usual sterile fashion. Lidocaine 1% was used as anesthetic into the skin and subcutaneous tissue up to the level of area of concern. A 7 cm needle was used. This was placed via a superior 11:00 approach recommended by the surgeon under ultrasound guidance. The needle was placed through the lesion. The wire was deployed distal to the lesion. The wire was placed through the needle and the needle was withdrawn. Subsequently two 90 degrees mammograms show the wire to be in satisfactory position relative to the targeted area.The wire was fixed to patient's skin. Images were marked for surgeon. The patient tolerated the procedure well without any immediate complication. Subsequent sentinel node injection was performed. Specimen: The wire and the targeted lesion and marker are identified within the specimen mammogram. IMPRESSION: 1. Successful wire localization and excision. Recommendations: 1. Recommendations are pending pathology results. Pathology Results: Malignant A. RIGHT SENTINEL NODE AND RIGHT AXILLARY CONTENTS: Two lymph nodes negative for metastasis. CK7 immunoperoxidase stain is confirmatory (control appropriate). B. RIGHT BREAST EPITHELIAL TISSUE: Benign skin and subcutaneous tissue. C. RIGHT BREAST NEW POSTERIOR MARGIN, EXCISION: Benign fibroadipose tissue. D. RIGHT BREAST, NEW MEDIAL MARGIN, EXCISION: Benign breast tissue with fibrocystic changes. E. RIGHT BREAST, NEW SUPERIOR MARGIN, EXCISION: Benign breast tissue with fibrocystic changes. F. RIGHT BREAST, NEW INFERIOR MARGIN, EXCISION: Benign fibroadipose tissue. G. RIGHT BREAST, NEW ANTERIOR MARGIN, EXCISION: Benign breast tissue. H. RIGHT BREAST, NEW LATERAL MARGIN, EXCISION: Benign breast tissue with fibrocystic changes. I. RIGHT BREAST, LUMPECTOMY: Invasive moderately differentiated ductal carcinoma (Grade 2), margins negative. See Surgical Pathology Cancer Case Summary. Recommendation Surgical consult of the right breast. EVIE
[2021-07-05 16:07] VITALS: BP 144/83; PULSE 78; RESP 18
== END 2021-07-05 16:49 | disposition home or self-care (01) ==
LOC: OR 10:43
PROVIDERS: ATTEND Surgery
DX: C50.411 Malignant neoplasm of upper-outer quadrant of right female breast (principal); N60.11 Diffuse cystic mastopathy of right breast; F17.210 Nicotine dependence, cigarettes, uncomplicated; I10 Essential (primary) hypertension; E78.00 Pure hypercholesterolemia, unspecified; E03.9 Hypothyroidism, unspecified; E66.9 Obesity, unspecified; G47.33 Obstructive sleep apnea (adult) (pediatric); Z17.0 Estrogen receptor positive status [ER+]; Z79.890 Hormone replacement therapy; Z68.36 Body mass index [BMI] 36.0-36.9, adult; Z90.710 Acquired absence of both cervix and uterus; Z90.722 Acquired absence of ovaries, bilateral; Z90.89 Acquired absence of other organs; Z98.891 History of uterine scar from previous surgery; Z98.890 Other specified postprocedural states; Z80.41 Family history of malignant neoplasm of ovary; Z80.51 Family history of malignant neoplasm of kidney
CPT/HCPCS: 88305; 88342; 88307; 77065; 76098; 19285; 38792; 19301; 38525; J2250; J1100; J2405; J2001; J3010; J1885; J2704; J1644

== ENCOUNTER → 2021-10-24 | Outpatient (CLI) | payer BC ==
--- NOTE | 2021-10-25 08:48 | BD ---
EXAMINATION TYPE: Axial Bone Density DATE OF EXAM: 10/24/2021 COMPARISON: 03.04.2013 CLINICAL HISTORY: 56 years year old Female. ICD-10 CODE: C50.111 BREAST CA Height: 66.7IN Weight: 228 FRAX RISK QUESTIONS: Secondary Osteoporosis: 3. Menopause before 45: YES RISK FACTORS HISTORY OF: Active: YES Postmenopausal woman: YES TOTAL HYSTERECTOMY AT 41 MEDICATIONS: Thyroid Medications: Which medication: Levothyroxine How Lon YEARS Additional Medications: HRT FOR 1 WEEK, BP MEDS, CHOLESTEROL MEDS, VITAMIN D Additional History: BREAST CANCER WITH RADIATION 2020 EXAM MEASUREMENTS: Bone mineral densitometry was performed using the [employer] System. Bone mineral density as measured about the Lumbar spine is: ----- L1-L4(G/cm2): 1.438 T Score Values are as follows: ----- L1: 1.6 ----- L2: 2.7 ----- L3: 2.8 ----- L4: 1.4 ----- L1-L4: 2.2 Bone mineral density has: Increased 0.1% since study of: 03.04.2013 Bone mineral density about the R hip (g/cm2): 1.265 Bone mineral density about the L hip (g/cm2): 1.259 T Score values are as follows: -----R Neck: 1.2 -----L Neck: 1.0 -----R Total: 2.0 -----L Total: 2.0 Bone mineral density has: Decreased -5.8% since study of: 03.04.2013 FRAX%s: The graph provided illustrates a 4.6% chance for a major osteoporotic fx and a 0% chance for the hips probability for fx in 10 years time. IMPRESSION: Normal (Values between +1 and -1 indicate normal bone mass). Consider repeating this study in 5 year s or sooner if there is some new clinical indication. NOTE: T-SCORE=SD OF THE YOUNG ADULT MEAN.
== END | disposition home or self-care (01) ==
LOC: RADBDWWP 12:34
PROVIDERS: ATTEND Internal Medicine Hematology & Oncology
DX: C50.111 Malignant neoplasm of central portion of right female breast (principal); Z78.0 Asymptomatic menopausal state
CPT/HCPCS: 77080

== ENCOUNTER → 2022-04-12 | Outpatient (CLI) | payer BC ==
--- NOTE | 2022-04-12 10:03 | MM ---
Reason for Exam: Follow-up at short interval from prior study. Last mammogram was performed 1 year(s) and 1 month(s) ago. Patient History: Menarche at age 11. First Full-Term at age 25. Left ovary removed at age 41. Right ovary removed at age 41. Hysterectomy at age 41. Postmenopausal. Breast cancer, age 56. Previous chest radiation therapy at age 56. Patient used Hormonal Contraceptives for 5 years. 07/05/2021, Lumpectomy on the Right side. 07/05/2021, Malignant Core Biopsy on the right side. 05/19/2021, Malignant Core Biopsy on the right side. Prior Study Comparison: 09/07/1999 Bilateral Special View Mammogram, [facility]. 12/14/2004 Bilateral Screening Mammogram, [facility]. 12/31/2006 Bilateral Screening Mammogram, [facility]. 03/04/2013 Bilateral Screening Mammogram, [facility]. 10/25/2017 Bilateral Screening Mammogram, [facility]. 11/01/2018 Bilateral Screening Mammogram, [facility]. 01/28/2020 Bilateral Screening Mammogram, [facility]. 04/08/2021 Bilateral Screening Mammogram, [facility]. 04/20/2021 Right Diagnostic Mammogram, [facility]. 04/20/2021 Right Diagnostic Ultrasound, [facility]. 05/19/2021 Right Diagnostic Mammogram, [facility]. 07/05/2021 Right Diagnostic Mammogram, [facility]. Tissue Density: The breast tissue is heterogeneously dense. This may lower the sensitivity of mammography. Findings: Analyzed By CAD. There is greater parenchymal tissue density on the right compared to the left. Multiple lumpectomy surgical clips are present on the right. There is some skin thickening. No suspicious architectural distortion spiculated or lobular masses or clustered microcalcifications are evident. Overall Assessment: Benign, BI-RAD 2 Management: Diagnostic Mammogram of both breasts in 1 year. A clinical breast exam by your physician is recommended on an annual basis and results should be correlated with mammographic findings. This exam should not preclude additional follow-up of suspicious palpable abnormalities. Results were given to the patient verbally at the time of exam. Electronically signed and approved by: Abimael Boudreaux D.O. Radiologis
== END | disposition home or self-care (01) ==
LOC: RADMAMWWP 09:35
PROVIDERS: ATTEND Radiology Radiation Oncology
DX: C50.411 Malignant neoplasm of upper-outer quadrant of right female breast (principal); Z17.0 Estrogen receptor positive status [ER+]; Z78.0 Asymptomatic menopausal state; Z92.3 Personal history of irradiation
CPT/HCPCS: 77062; 77066

== ENCOUNTER → 2022-04-13 | Outpatient (CLI) | payer BC ==
[2022-04-13 10:30] VITALS: BP 129/81; PULSE 80; RESP 16; TEMP 98.7
--- NOTE | 2022-04-13 10:40 | P.PN ---
Subjective Progress Note Date: 04/13/22 Principal diagnosis: right breast stage I invasive ductal cancer stage IA right breast cancer Emelyn is a 56 year old white female status post right lumpectomy and SNB on 07-05-21. [id number]. Radiation therapy completed 09-14-21. She underwent adjuvant whole breast radiotherapy plus a boost. An Oncotype score was 10. She started endocrine therapy Aromasin however stopped this week secondary to fatigue, and bone pain, hair loss, and hot flashes. The patient's last bilateral mammogram was in 04-12-22, and this is BIRAD 2. The patient has opted not to take any endocrine therapy at this time. She has discussed this with medical oncology. The patient is not feeling any new lumps masses or nodules of concern in either breast. There is some mild erythema under the right breast which may be an early fungal infection. Caffiene: occasional nicotine: 4 cigarettes/day for 30 years; stopped smoking in June 2021 chocolate: several times/week Family History: maternal grandmother: ovarian cancer mother: kidney cancer Hormonal History; Menarche: 10 M1, breast fed: no, age at first : 25 menopause: hysterectomy at 41 they took her ovaries, done for a cyst; done secondary to family history hormones: none BCP: 2 years Surgical History: tonsil tubal Bilateral knee torn meniscus Total abdominal hysterectomy Right breast lumpectomy and sentinel node biopsy Left knee total knee replacement September 2021 Medical History: HTN high cholesterol hypothyroid pre-diabetic Social History: nicotine: 4/day alcohol: occasional drugs: none - Constitutional Constitutional: Denies chills, Denies fever - EENT Eyes: denies blurred vision, denies pain Ears: deny: decreased hearing, tinnitus Ears, nose, mouth and throat: Denies headache, Denies sore throat - Breasts Breasts: bilateral: as per HPI - Cardiovascular Cardiovascular: Denies chest pain, Denies shortness of breath - Respiratory Respiratory: Denies cough - Gastrointestinal Gastrointestinal: Denies abdominal pain, Denies diarrhea, Denies nausea, Denies vomiting - Genitourinary (Female) Genitourinary: Denies dysuria, Denies hematuria - Menstruation Menstruation: Reports as per HPI - Musculoskeletal Musculoskeletal: Denies myalgias - Integumentary Integumentary: Denies pruritus, Denies rash - Neurological Neurological: Denies numbness, Denies weakness - Psychiatric Psychiatric: Denies anxiety, Denies depression - Endocrine Comment: hypothyroid Endocrine: pre-diabetic - Hematologic/Lymphatic Comment: none - Allergic/Immunologic Allergic/Immunologic: Reports seasonal allergies Past Medical History Past Medical History: Hypertension History of Any Multi-Drug Resistant Organisms: None Reported Past Surgical History: Section, Hysterectomy, Tonsillectomy, Tubal Ligation Additional Past Surgical History / Comment(s): torn meniscus repair Past Anesthesia/Blood Transfusion Reactions: No Reported Reaction Past Psychological History: No Psychological Hx Reported Smoking Status: Current every day smoker Past Alcohol Use History: Occasional Past Drug Use History: None Reported Objective - Vital Signs Vital signs: Vital Signs Temp 98.7 F 04/13/22 10:26 Pulse 80 04/13/22 10:26 Resp 16 04/13/22 10:26 BP 129/81 04/13/22 10:26 Pulse Ox 88 L 04/13/22 10:26 FiO2 Intake & Output 04/12/22 04/13/22 04/13/22 18:59 06:59 18:59 Weight 103.419 kg - Constitutional General appearance: Present: cooperative - EENT Eyes: Present: EOMI ENT: Present: hearing grossly normal - Neck Neck: Present: normal ROM - Respiratory Respiratory: bilateral: CTA - Cardiovascular Rhythm: regular Heart sounds: normal: S1, S2 - Gastrointestinal General gastrointestinal: Present: soft - Integumentary Integumentary: Present: normal turgor - Musculoskeletal Musculoskeletal: Present: gait normal - Psychiatric Psychiatric: Present: A&O x's 3, appropriate affect, intact judgment & insight - Additional findings Additional findings: Bresat Exam: BRA: 42B Inspection: right breast post radiation and surgical changes; grade 2 ptosis on the right, grade 2/3 ptosis on the left, slight asymmetry related to prior surgery Palpation: right breast: Multi-positional exam fibrocystic changes no dominant masses or nodules of concern Well-healed scar from prior surgery Right axilla: No adenopathy of concern Left breast: Multi-positional exam fibrocystic changes no dominant masses or nodules of concern Left axilla: No adenopathy of concern Mild erythema to right breast which may represent an early fungal infection. Assessment and Plan Assessment: Impression: Stage I a right breast invasive ductal carcinoma no evidence of recurrence Lumpectomy/sentinel node biopsy/radiation therapy/attempt at hormone therapy which the patient has stopped at this time Prediabetic Hypertension High cholesterol Hypothyroid Plan: Bilateral mammogram in April, with examination at that time Patient has discussed hormone therapy with medical oncology at this time the side effects have caused her to stop taking this and she is no longer following with medical oncology Continue to follow with radiation oncology Nystatin for fungal infection under right breast Patient will call us if there is any question or concern in her breast prior to her next appointment CC: DR. Napoleon Sandoval
== END ==
LOC: WWCWWP 09:50
PROVIDERS: ATTEND Surgery
DX: Z85.3 Personal history of malignant neoplasm of breast (principal); E03.9 Hypothyroidism, unspecified; E78.5 Hyperlipidemia, unspecified; I10 Essential (primary) hypertension; F17.200 Nicotine dependence, unspecified, uncomplicated

== ENCOUNTER → 2022-07-06 | Outpatient (CLI) | payer BC ==
[2022-07-06 13:26] VITALS: BP 147/74; PULSE 81; RESP 16; TEMP 97.9
--- NOTE | 2022-07-06 13:58 | P.PN ---
Subjective Progress Note Date: 07/06/22 Principal diagnosis: right breast invasive ductal cancer right breast stage I invasive ductal cancer stage IA right breast cancer Emelyn is a 56 year old white female status post right lumpectomy and SNB on 07-05-21. [id number]. Radiation therapy completed 09-14-21. She underwent adjuvant whole breast radiotherapy plus a boost. An Oncotype score was 10. She started endocrine therapy Aromasin however stopped this week secondary to fatigue, and bone pain, hair loss, and hot flashes. The patient's last bilateral mammogram was in 04-12-22, and this is BIRAD 2. The patient has opted not to take any endocrine therapy at this time. She has discussed this with medical oncology. The patient is not feeling any new lumps masses or nodules of concern in either breast. 07-06-22 The patient comes today for breast exam. Many of any lesions of concern in her breast at this time. Caffiene: occasional nicotine: 4 cigarettes/day for 30 years; stopped smoking in June 2021 chocolate: several times/week Family History: maternal grandmother: ovarian cancer mother: kidney cancer Hormonal History; Menarche: 10 M1, breast fed: no, age at first : 25 menopause: hysterectomy at 41 they took her ovaries, done for a cyst; done secondary to family history hormones: none BCP: 2 years Surgical History: tonsil tubal Bilateral knee torn meniscus Total abdominal hysterectomy Right breast lumpectomy and sentinel node biopsy Left knee total knee replacement September 2021 Medical History: HTN high cholesterol hypothyroid pre-diabetic Social History: nicotine: 4/day alcohol: occasional drugs: none - Constitutional Constitutional: Denies chills, Denies fever - EENT Eyes: denies blurred vision, denies pain Ears: deny: decreased hearing, tinnitus Ears, nose, mouth and throat: Denies headache, Denies sore throat - Breasts Breasts: bilateral: as per HPI - Cardiovascular Cardiovascular: Denies chest pain, Denies shortness of breath - Respiratory Respiratory: Denies cough - Gastrointestinal Gastrointestinal: Denies abdominal pain, Denies diarrhea, Denies nausea, Denies vomiting - Genitourinary (Female) Genitourinary: Denies dysuria, Denies hematuria - Menstruation Menstruation: Reports as per HPI - Musculoskeletal Musculoskeletal: Denies myalgias - Integumentary Integumentary: Denies pruritus, Denies rash - Neurological Neurological: Denies numbness, Denies weakness - Psychiatric Psychiatric: Denies anxiety, Denies depression - Endocrine Comment: hypothyroid Endocrine: pre-diabetic - Hematologic/Lymphatic Comment: none - Allergic/Immunologic Allergic/Immunologic: Reports seasonal allergies Past Medical History Past Medical History: Hypertension History of Any Multi-Drug Resistant Organisms: None Reported Past Surgical History: Section, Hysterectomy, Tonsillectomy, Tubal Ligation Additional Past Surgical History / Comment(s): torn meniscus repair Past Anesthesia/Blood Transfusion Reactions: No Reported Reaction Past Psychological History: No Psychological Hx Reported Smoking Status: Current every day smoker Past Alcohol Use History: Occasional Past Drug Use History: None Reported Objective - Vital Signs Vital signs: Vital Signs Temp 97.9 F 07/06/22 13:25 Pulse 81 07/06/22 13:25 Resp 16 07/06/22 13:25 BP 147/74 07/06/22 13:25 Pulse Ox 97 07/06/22 13:25 FiO2 Intake & Output 07/05/22 07/06/22 07/06/22 18:59 06:59 18:59 Weight 102.512 kg - Constitutional General appearance: Present: cooperative - EENT Eyes: Present: EOMI ENT: Present: hearing grossly normal - Neck Neck: Present: normal ROM - Respiratory Respiratory: bilateral: CTA - Cardiovascular Rhythm: regular Heart sounds: normal: S1, S2 - Gastrointestinal General gastrointestinal: Present: soft - Integumentary Integumentary: Present: normal turgor - Musculoskeletal Musculoskeletal: Present: gait normal - Psychiatric Psychiatric: Present: A&O x's 3, appropriate affect, intact judgment & insight - Additional findings Additional findings: Bresat Exam: BRA: 42B Inspection: right breast post radiation and surgical changes; grade 2 ptosis on the right, grade 2/3 ptosis on the left, slight asymmetry related to prior surgery Palpation: right breast: Multi-positional exam fibrocystic changes no dominant masses or nodules of concern Well-healed scar from prior surgery Right axilla: No adenopathy of concern Left breast: Multi-positional exam fibrocystic changes no dominant masses or nodules of concern Left axilla: No adenopathy of concern Assessment and Plan Assessment: Impression: Stage I a right breast invasive ductal carcinoma no evidence of recurrence Lumpectomy/sentinel node biopsy/radiation therapy/attempt at hormone therapy which the patient has stopped at this time Prediabetic Hypertension High cholesterol Hypothyroid Plan: Examination in 6 months Bilateral mammogram in April 2023 Continue to follow with radiation oncology CC: DR. Napoleon Sandoval
== END ==
LOC: WWCWWP 12:53
PROVIDERS: ATTEND Surgery
DX: C50.911 Malignant neoplasm of unspecified site of right female breast (principal); I10 Essential (primary) hypertension; E78.00 Pure hypercholesterolemia, unspecified; E03.9 Hypothyroidism, unspecified; R73.09 Other abnormal glucose; Z87.891 Personal history of nicotine dependence

== ENCOUNTER → 2023-01-23 | Outpatient (CLI) | payer BC ==
--- NOTE | 2023-01-23 15:38 | P.SLEEP ---
History of Present Illness H&P Date: 01/23/23 This is a 57-year-old female patient was being seen for a second opinion regarding her obstructive sleep apnea treatment. The patient was seen in our sleep Center by another sleep physician and the patient was unhappy with the overall response and for that reason she came in to see me for a second opinion. The patient has been diagnosed having obstructive sleep apnea back in 2018. At that time, the patient underwent a home sleep study and the patient was found to have a severe obstructive sleep apnea with an AHI of 31.4. The patient had a low pulse ox of 66%. Back then, she is to weigh around 244 pounds. She was given CPAP titration and following that the patient was started on APAP therapy which is currently running at a minimum pressure of 5 and a maximum pressure of 19 and the patient is using an Airfit F20 20 fullface mask. 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 Her treatment has not been fully successful. The patient has had difficulties in tolerating the higher CPAP pressures. I checked the compliance data on her machine and the patient utilized the machine 26 out of the past 30 days and she has been achieving more than 4 hours of usage and 21 out of 30 days. The patient's AHI is down to 7.9 while on treatment and the patient has been averaging around 4.7 hours of CPAP use per night with a leak of 17 L/m. The average pressure delivered by the machines at 18.9 cm of water. The patient is stating that the machine is pumping a day very high pressure and she is unable to tolerate the higher pressure more than 4 hours. For that reason, she is coming in for further advice. The patient has lost weight since then and the patient is currently weighing around 235 pounds. She is awake and alert during the day. She is now falling asleep while driving. She has never been involved in a motor vehicle accident because of feeling drowsy or sleepy. No substance abuse. No chest pain. No shortness of breath. No heartburn. She is going to bed at around 9 PM and she is waking up at 4:15 AM in the morning. On weekends, she states seen 10:30 PM and 7 AM in the morning. No naps during the day. No sleep paralysis. No hallucinations. No cataplexy. Her current Bolingbrook score is at 3. Review of Systems Constitutional: Reports fatigue, Reports weight loss Eyes: denies as per HPI, denies blurred vision, denies bulging eye, denies decreased vision, denies diplopia, denies discharge, denies dry eye, denies irritation, denies itching, denies pain, denies photophobia, denies loss of peripheral vision, denies loss of vision, denies tunnel vision/blind spots Ears: deny: decreased hearing, ear discharge, earache, tinnitus Ears, nose, mouth and throat: Reports as per HPI Breasts: absent: as per HPI, change in shape, gynecomastia, masses, nipple discharge, pain, skin changes, swelling Cardiovascular: Reports as per HPI Respiratory: Reports sleep apnea Gastrointestinal: Reports as per HPI Genitourinary: Reports as per HPI Menstruation: Reports as per HPI Musculoskeletal: Reports as per HPI Musculoskeletal: absent: ankle pain, ankle stiffness, ankle swelling Integumentary: Reports as per HPI Neurological: Reports as per HPI Psychiatric: Reports as per HPI Endocrine: Reports as per HPI Hematologic/Lymphatic: Reports as per HPI Allergic/Immunologic: Reports as per HPI Past Medical History Past Medical History: Cancer, Hyperlipidemia, Hypertension, Sleep Apnea/CPAP/BIPAP, Thyroid Disorder Additional Past Medical History / Comment(s): Obesity, obstructive sleep apnea, history of breast cancer with a previous lumpectomy and lymph node dissection, hypothyroidism, diabetes mellitus, hyperlipidemia History of Any Multi-Drug Resistant Organisms: None Reported Past Surgical History: Section, Hysterectomy, Joint Replacement, Orthopedic Surgery, Tonsillectomy, Tubal Ligation Additional Past Surgical History / Comment(s): torn meniscus repair bilateral knees Past Anesthesia/Blood Transfusion Reactions: No Reported Reaction Past Psychological History: No Psychological Hx Reported Smoking Status: Former smoker Past Alcohol Use History: Occasional Additional Past Alcohol Use History / Comment(s): SMOKES 3-4 CIGARETTES DAILY OFF AND ON SINCE AGE 15 Past Drug Use History: None Reported - Past Family History Mother Family Medical History: Cancer Medications and Allergies Home Medications Medication Instructions Recorded Confirmed Type Cholecalciferol [Vitamin D3] 1,000 unit PO DAILY@1200 10/05/15 07/06/22 History Levothyroxine Sodium [Synthroid] 100 mcg PO QAM 10/05/15 07/06/22 History Losartan Potassium [Cozaar] 100 mg PO DAILY@1200 10/05/15 07/06/22 History hydroCHLOROthiazide [Hydrodiuril] 25 mg PO DAILY@1200 10/05/15 07/06/22 History Ascorbic Acid [Vitamin C] 500 mg PO DAILY 05/11/21 07/06/22 History Atorvastatin Calcium [Lipitor] 10 mg PO DAILY@1200 05/19/21 07/06/22 History Cranberry Fruit Extract [Cranberry] 500 mg PO DAILY 06/30/21 07/06/22 History Glimepiride [Amaryl] 2 mg PO DAILY 12/01/21 07/06/22 History Nystatin 100,000Unit/gm Cream 1 applic TOPICAL BID #30 gm 04/13/22 07/06/22 Rx [Mycostatin Cream] Allergies Allergy/AdvReac Type Severity Reaction Status Date / Time No Known Allergies Allergy Verified 07/06/22 13:24 Physical Exam BP is 130/80, pulse is 99, respirations 16, temperature 98.2, saturations 95% on room air oxygen, Bolingbrook score is currently at 3, BMI 30.2, the size of the neck is 163/4 of an inch. Gen. appearance, the patient is obese and she is, comfortable, not in acute distress. The patient has a Mallampati class IV with significant crowding of p osterior oropharynx. The patient appeared well nourished and normally developed. Vital signs as documented. Head exam is unremarkable. No scleral icterus or corneal arcus noted. Neck is without jugular venous distension, thyromegaly, or carotid bruits. Carotid upstrokes are brisk bilaterally. Lungs are clear to auscultation and percussion. Cardiac exam reveals the PMI to be normally sized and situated. Rhythm is regular. First and second heart sounds normal. No murmurs, rubs or gallops. Abdominal exam reveals normal bowel sounds, no masses, no organomegaly and no aortic enlargement. Extremities are nonedematous and both femoral and pedal pulses are normal.Examination of the skin revealed no evidence of significant rashes, suspicious appearing nevi or other concerning le sions.Neurologically, the patient is awake and alert and the patient does not have any focal neurological deficit. Cranial nerves are essentially intact. Assessment and Plan Plan: Obstructive sleep apnea, severe, based on a sleep study that was done back in 2018, the patient has an AHI of 31.4 and the patient has been treated with an APAP machine current settings of 5/19 cm of water with an air fit F 20 fullface mask. Poor tolerability to CPAP therapy due to higher pressure delivered by the machine. Despite her poor tolerability, the patient has been able to average around 4.7 hours of CPAP use per night. 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 I'm wondering if the patient does better on a BiPAP compared to his CPAP. Is also possible that the patient's machine is malfunctioning and it is pumping at a higher pressure as the patient is still having obstructive respiratory events despite being on a CPAP pressure of 18.9 cm of water. As such, I'm recommending a CPAP titration with the option of switching the patient to a BiPAP for comfort reasons especially of the required pressures turnout to be quite elevated. The patient will be encouraged to lose more weight. The patient is going to undergo a titration and see him back in follow-up. 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 We'll encourage weight loss and maintaining good sleep hygiene measures. We'll continue to follow. Sleep Note - Sleep Note Sleep Note: Temperature: Pulse Rate: Respiratory Rate: Blood Pressure: SpO2: Height: Weight: BMI: Neck Circumference:
== END ==
LOC: 3 N SLEEP 14:17
PROVIDERS: ATTEND Internal Medicine Critical Care Medicine
DX: G47.33 Obstructive sleep apnea (adult) (pediatric) (principal); E66.01 Morbid (severe) obesity due to excess calories; I10 Essential (primary) hypertension; E11.9 Type 2 diabetes mellitus without complications; E03.9 Hypothyroidism, unspecified; E78.5 Hyperlipidemia, unspecified; Z85.3 Personal history of malignant neoplasm of breast; Z68.38 Body mass index [BMI] 38.0-38.9, adult; Z87.891 Personal history of nicotine dependence; Z79.84 Long term (current) use of oral hypoglycemic drugs; Z79.890 Hormone replacement therapy; Z79.899 Other long term (current) drug therapy
CPT/HCPCS: 99211

== ENCOUNTER 2023-04-05 19:40 | Outpatient (CLI) | payer BC ==
--- NOTE | 2023-04-11 03:04 | SLS ---
SLEEP STUDY HISTORY OF PRESENT ILLNESS: This is a 57-year-old female patient with known history of severe obstructive sleep apnea based on the study that was done in 2018 and at that time the patient had an AHI of 31.4. The patient was treated with APAP machine pressures of 5/19 cm of water and she was given a full-face mask AirFit F20. The patient was having difficulty tolerating the CPAP and she came and saw me in followup in a consultation on 01/23/2023. Her compliancy was adequate. Nevertheless, she showed interest in BiPAP therapy as the patient has been having significant difficulties in maintaining treatment. For that reason, another titration was done. PERTINENT PHYSICAL FINDINGS: Height is 5 feet 5 inches, weight is 235, and body mass index is 38.2. TECHNICAL DESCRIPTION: The sleep evaluation of the patient consisted of clinical polysomnography, nocturnal respiratory battery, left and right anterior tibialis surface electromyography. The standard montage for the clinical polysomnography included the EEG, EOG, EMG, and EKG. Respiratory battery included measurements of nasal/buccal airflow, thoracic, and/or abdominal effort and intercostal surface EMG. Nocturnal oxyhemoglobin saturations were obtained by finger oximetry. Digital video and audio monitoring were done throughout the entire night to check or parasomnias. Step-nicholson titration with positive airway pressure was utilized during the study to control the respiratory events. SLEEP ARCHITECTURE: Total recording time was 120.0 minutes. Total sleep time was 356.5 minutes and the sleep efficiency was calculated to be at 84.9%. Latency to sleep onset was 9 minutes. Latency to REM sleep was 176.0 minutes and the sleep architecture was characterized by 10.7% stage I, 75.2% stage II, 0% stage III, and 14.2% REM sleep. The total arousal index was 17.8. SLEEP CONTINUITY SUMMARY: The patient had a total of 106 arousals with an index of 17.8. Respiratory arousal index was 2.4. PERIODIC LIMB MOVEMENT ACTIVITY: This study recorded only 50 periodic limb movement activity with an index of 8.4, only few of these periodic limb movement activity resulted into arousals. CARDIAC SUMMARY: Average heart rate was 72, minimum heart rate was 68, maximum heart rate was 77. CPAP/BIPAP TITRATION: The patient was initially started on CPAP therapy at a pressure of 5 cm of water and pressure was gradually increased by increments of 1 cm to reach a maximum CPAP pressure of 13 cm of water. Following that, the patient was switched to a BiPAP at a pressure of 16/12 and maximize at a BiPAP pressure of 22/18 cm of water. I carefully reviewed the CPAP and the BiPAP titration taking into account the patient's sleep stage and body position. Note that the patient was still having obstructive respiratory events at the various CPAP pressures utilized. While on BiPAP, the patient was still encountering some nocturnal oxygen desaturations especially during REM sleep. Nevertheless, there was adequate elimination and improvement in the obstructive respiratory events while being on the BiPAP. IMPRESSION: 1. Obstructive sleep apnea, severe at baseline with an apnea-hypopnea index of 31.4 based on the study done in 2018. The patient was having difficulties in tolerating APAP therapy. 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 3. Morbid obesity with a body mass index of 38.2. 4. Diabetes mellitus type 2. 5. Hypertension. 6. Hyperlipidemia. 7. Chronic hypersomnia improved and the patient's [place] score is down to 3. 8. History of breast cancer. PLAN: I am going to switch this patient from CPAP to BiPAP therapy. BiPAP seems to be more tolerable for this patient. I am going to start her on EPAP minimum of 10 and a maximum of 22 with a pressure support of 4. She will be kept on the same mask interface which is an AirFit F20 full-face mask. The patient will be delivered a BiPAP machine and the patient will see me back in followup in 30 to 90 days to assess her clinical response and compliancy, and further adjustments will be done accordingly. [id number] / HAYLEYN: [id number] /
== END 2023-04-06 05:40 | disposition home or self-care (01) ==
LOC: 3 N SLEEP 19:40
PROVIDERS: ATTEND Internal Medicine Critical Care Medicine
DX: G47.33 Obstructive sleep apnea (adult) (pediatric) (principal); E66.01 Morbid (severe) obesity due to excess calories; E11.9 Type 2 diabetes mellitus without complications; I10 Essential (primary) hypertension; E78.5 Hyperlipidemia, unspecified; G47.52 REM sleep behavior disorder; G47.36 Sleep related hypoventilation in conditions classified elsewhere; G47.10 Hypersomnia, unspecified; Z68.38 Body mass index [BMI] 38.0-38.9, adult; Z85.3 Personal history of malignant neoplasm of breast; Z79.84 Long term (current) use of oral hypoglycemic drugs; Z79.899 Other long term (current) drug therapy; Z87.891 Personal history of nicotine dependence
CPT/HCPCS: 95811

== ENCOUNTER → 2023-04-13 | Outpatient (CLI) | payer BC ==
--- NOTE | 2023-04-13 11:27 | MM ---
Reason for Exam: Follow-up at short interval from prior study. Last screening mammogram was performed 12 month(s) ago. Patient History: Menarche at age 11. First Full-Term at age 25. Left ovary removed at age 41. Right ovary removed at age 41. Hysterectomy at age 41. Postmenopausal. Breast cancer, age 56. Previous chest radiation therapy at age 56. Patient used Hormonal Contraceptives for 5 years. 07/05/2021, Lumpectomy on the Right side. 07/05/2021, Malignant Core Biopsy on the right side. 05/19/2021, Malignant Core Biopsy on the right side. 2021, Radiation Therapy on the right side. Tissue Density: There are scattered fibroglandular densities. Findings: Analyzed By CAD. Pattern is asymmetric with slightly greater parenchymal tissue density on the right compared to the left. This could be post surgical treatment of a prior lumpectomy mid right posterior breast. No significant interval change from prior study is evident. No suspicious groups of microcalcifications, spiculated or lobular masses, architectural distortion or other secondary signs of malignancy are mammographically apparent. Overall Assessment: Benign, BI-RAD 2 Management: Diagnostic Mammogram of both breasts in 1 year. A negative mammogram report should not preclude additional follow up of suspicious palpable abnormalities. Patient should continue monthly self breast exam. A clinical breast exam by your physician is recommended on an annual basis and results should be correlated with mammographic findings. Electronically signed and approved by: Abimael Boudreaux D.O. Radiologis
== END | disposition home or self-care (01) ==
LOC: RADMAMWWP 10:59
PROVIDERS: ATTEND Surgery
DX: R92.323 Mammographic fibroglandular density, bilateral breasts (principal); Z85.3 Personal history of malignant neoplasm of breast; Z78.0 Asymptomatic menopausal state
CPT/HCPCS: 77062; 77066

== ENCOUNTER → 2023-04-19 | Outpatient (CLI) | payer BC ==
[2023-04-19 10:52] VITALS: BP 134/82; PULSE 89; RESP 18; TEMP 97.7
--- NOTE | 2023-04-19 10:53 | P.PN ---
Subjective Progress Note Date: 04/19/23 Principal diagnosis: stage I invasive right breast cancer 2021 right breast stage I invasive ductal cancer; 2021 Emelyn is a 57 year old white female status post right lumpectomy and SNB on 07-05-21. [id number]. Radiation therapy completed 09-14-21. She underwent adjuvant whole breast radiotherapy plus a boost. An Oncotype score was 10. She started endocrine therapy Aromasin however stopped this week secondary to fatigue, and bone pain, hair loss, and hot fl ashes. The patient's last bilateral mammogram was in 04-13-23, and this is BIRAD 2. The patient has opted not to take any endocrine therapy at this time. She has discussed this with medical oncology. The patient is not feeling any new lumps masses or nodules of concern in either breast. Caffiene: occasional nicotine: 4 cigarettes/day for 30 years; stopped smoking in June 2021 chocolate: several times/week Family History: maternal grandmother: ovarian cancer mother: kidney cancer Hormonal History; Menarche: 10 M1, breast fed: no, age at first : 25 menopause: hysterectomy at 41 they took her ovaries, done for a cyst; done secondary to family history hormones: none BCP: 2 years Surgical History: tonsil tubal Bilateral knee torn meniscus Total abdominal hysterectomy Right breast lumpectomy and sentinel node biopsy Left knee total knee replacement September 2021 Medical History: HTN high cholesterol hypothyroid pre-diabetic Social History: nicotine: 4/day alcohol: occasional drugs: none - Constitutional Constitutional: Denies chills, Denies fever - EENT Eyes: denies blurred vision, denies pain Ears: deny: decreased hearing, tinnitus Ears, nose, mouth and throat: Denies headache, Denies sore throat - Breasts Breasts: bilateral: as per HPI - Cardiovascular Cardiovascular: Denies chest pain, Denies shortness of breath - Respiratory Respiratory: Denies cough - Gastrointestinal Gastrointestinal: Denies abdominal pain, Denies diarrhea, Denies nausea, Denies vomiting - Genitourinary (Female) Genitourinary: Denies dysuria, Denies hematuria - Menstruation Menstruation: Reports as per HPI - Musculoskeletal Musculoskeletal: Denies myalgias - Integumentary Integumentary: Denies pruritus, Denies rash - Neurological Neurological: Denies numbness, Denies weakness - Psychiatric Psychiatric: Denies anxiety, Denies depression - Endocrine Comment: hypothyroid Endocrine: pre-diabetic - Hematologic/Lymphatic Comment: none - Allergic/Immunologic Allergic/Immunologic: Reports seasonal allergies Past Medical History Past Medical History: Hypertension History of Any Multi-Drug Resistant Organisms: None Reported Past Surgical History: Section, Hysterectomy, Tonsillectomy, Tubal Ligation Additional Past Surgical History / Comment(s): torn meniscus repair Past Anesthesia/Blood Transfusion Reactions: No Reported Reaction Past Psychological History: No Psychological Hx Reported Smoking Status: Current every day smoker Past Alcohol Use History: Occasional Past Drug Use History: None Reported Objective - Vital Signs Vital signs: Intake & Output 04/18/23 04/19/23 04/19/23 18:59 06:59 18:59 Weight 104.78 kg - Constitutional General appearance: Present: cooperative - EENT Eyes: Present: EOMI ENT: Present: hearing grossly normal - Neck Neck: Present: normal ROM - Respiratory Respiratory: bilateral: CTA - Cardiovascular Heart sounds: normal: S1, S2 - Gastrointestinal General gastrointestinal: Present: soft - Integumentary Integumentary: Present: normal turgor - Musculoskeletal Musculoskeletal: Present: gait normal - Psychiatric Psychiatric: Present: A&O x's 3, appropriate affect, intact judgment & insight - Additional findings Additional findings: Bresat Exam: BRA: 42B Inspection: right breast post radiation and surgical changes; grade 2 ptosis on the right, grade 2/3 ptosis on the left, slight asymmetry related to prior surge ry Palpation: right breast: Multi-positional exam fibrocystic changes no dominant masses or nodules of concern Well-healed scar from prior surgery Right axilla: No adenopathy of concern Left breast: Multi-positional exam fibrocystic changes no dominant masses or nodules of concern Left axilla: No adenopathy of concern Assessment and Plan Assessment: Impression: Stage Ia right breast invasive ductal carcinoma no evidence of recurrence Lumpectomy/sentinel node biopsy/radiation therapy/attempt at hormone therapy which the patient has stopped at this time Prediabetic Hypertension High cholesterol Hypothyroid Plan: Examination in 6 months Bilateral mammogram in April 2023; done BIRAD 2 bilateral mammogram in 1 year 2024 Continue to follow with radiation oncology CC: Dr. Scott
== END ==
LOC: WWCWWP 10:35
PROVIDERS: ATTEND Surgery
DX: Z12.31 Encounter for screening mammogram for malignant neoplasm of breast (principal); C50.911 Malignant neoplasm of unspecified site of right female breast; E03.9 Hypothyroidism, unspecified; E78.00 Pure hypercholesterolemia, unspecified; I10 Essential (primary) hypertension; M89.8X9 Other specified disorders of bone, unspecified site; Z85.3 Personal history of malignant neoplasm of breast; Z90.710 Acquired absence of both cervix and uterus; Z92.3 Personal history of irradiation; Z96.652 Presence of left artificial knee joint; Z98.890 Other specified postprocedural states; Z79.890 Hormone replacement therapy; Z87.891 Personal history of nicotine dependence

== ENCOUNTER → 2024-10-07 | Outpatient (CLI) | payer BC ==
--- NOTE | 2024-10-07 11:13 | MM ---
Reason for Exam: Follow-up at short interval from prior study. Last mammogram was performed 1 year(s) and 6 month(s) ago. Patient History: Menarche at age 11. First Full-Term at age 25. Left ovary removed at age 41. Right ovary removed at age 41. Hysterectomy at age 41. Postmenopausal. Breast cancer, right, age 56. Previous chest radiation therapy at age 56. Patient used Hormonal Contraceptives for 5 years. 07/05/2021, Lumpectomy on the Right side. 07/05/2021, Malignant Core Biopsy on the right side. 05/19/2021, Malignant Core Biopsy on the right side. 2021, Radiation Therapy on the right side. Prior Study Comparison: 04/20/2021 Right Diagnostic Mammogram, [facility]. 04/20/2021 Right Diagnostic Ultrasound, [facility]. 05/19/2021 Right Diagnostic Mammogram, [facility]. 07/05/2021 Right Diagnostic Mammogram, [facility]. 04/12/2022 Bilateral MG 3D diag mammo w/cad NOY, [facility]. 04/13/2023 Bilateral MG 3D diag mammo w/cad NOY, [facility]. Tissue Density: There are scattered areas of fibroglandular density. Findings: Analyzed By CAD. Postsurgical and posttreatment changes right breast. Anteriorly near the surgical clips, there are new/increasing calcifications that have the appearance of early fat necrosis. Short interval follow-up to confirm. Otherwise, no significant change. Overall Assessment: Probably benign, BI-RAD 3 Management: Diagnostic Mammogram of the right breast in 6 months. Results were given to the patient verbally at the time of exam. Patient should continue monthly self-breast exams. A clinical breast exam by your physician is recommended on an annual basis. This exam should not preclude additional follow-up of suspicious palpable abnormalities. [facility], , 10/07/2024 11:11 AM. Electronically signed and approved by: Flakita Bertrand M.D. Radiologist
== END | disposition home or self-care (01) ==
LOC: RADMAMWWP 10:50
PROVIDERS: ATTEND Surgery
DX: R92.323 Mammographic fibroglandular density, bilateral breasts (principal); Z85.3 Personal history of malignant neoplasm of breast; R92.1 Mammographic calcification found on diagnostic imaging of breast; Z78.0 Asymptomatic menopausal state; Z92.0 Personal history of contraception
CPT/HCPCS: 77062; 77066